=== PATIENT | male | born 1970 | race Caucasian/White ===

== ENCOUNTER 2018-10-05 12:06 | Emergency (ER) | payer MEDICAID ==
[~2018-10-05] VITALS: Ht 172.7 cm; Wt 90.7 kg
[2018-10-05 12:12] VITALS: Ht 172.7 cm; Wt 90.7 kg
[2018-10-05 14:30] VITALS: BP 141/75
== END 2018-10-05 14:30 | disposition home or self-care (01) ==
LOC: ED 12:06
DX: B34.9 Viral infection, unspecified (principal); E78.00 Pure hypercholesterolemia, unspecified
CPT/HCPCS: J1885; Q0092